=== PATIENT | male | born 1980 | race Asian ===

== ENCOUNTER 2018-08-01 06:31 | Emergency (ER) | payer OTHER ==
[~2018-08-01] VITALS: Ht 170.2 cm; Wt 75.0 kg
[~2018-08-01 06:31] MED LIST: ACET500C5 PO; FAMO20TA18 PO; HYDR-4011 PO; LEVO500T48 PO; ONDA4TAB8 PO
[2018-08-01 06:35] VITALS: Ht 170.2 cm; Wt 75.0 kg
[2018-08-01] MEDS ORDERED: ONDANSETRON 4 MG INJ IV STA (07:20)
[2018-08-01] MEDS ORDERED: KETOROLAC 30 MG INJ IV STA (07:20)
[2018-08-01] MEDS ORDERED: SOD CHLORIDE 0.9% 1,000 ML IV STA (07:20)
[2018-08-01] MEDS ORDERED: morphine 4 MG/ML VIAL IV STA (07:20)
[2018-08-01] MEDS ORDERED: FAMOTIDINE 20 MG INJ IV STA (07:20)
[2018-08-01] MEDS ORDERED: morphine 2 MG INJ IV STA (10:16)
[2018-08-01] MEDS ORDERED: IOHEXOL 300MG/ML 150 ML BTL ONE (10:29)
[2018-08-01] MEDS ORDERED: SOD CHLORIDE 0.9% 100 ML ONE (10:29)
[2018-08-01] MEDS ORDERED: SUCR1TAB56 PO (10:56)
[2018-08-01] MEDS ORDERED: HYDR-4011 PO (10:56)
[2018-08-01 11:13] VITALS: BP 109/69; PULSE 68; RESP 18
--- NOTE | 2018-08-01 12:20 | ERD ---
ER Documentation Chief Complaint Chief Complaint pt is bib self with c/o abd pain starting on Saturday getting worse HPI 37-year-old male presents with epigastric pain times 5 days. Is progressively gotten worse and it is a 9 out of 10 pain this morning he woke up. He has had nausea but no vomiting. Denies chest pain or shortness of breath. Denies fevers. Has not taken medications for symptoms. Denies medical problems. Allergy to sulfa and ampicillin. Surgical history is appendectomy 2 years ago. Social history denies ROS All systems reviewed and are negative except as per history of present illness. Medications Home Meds Active Scripts Sucralfate* (Carafate*) 1 Gm Tab, 1 GM PO QID, #15 TAB Prov:ANTONIA MELGAR PA-C 08/01/18 Hydrocodone/Acetaminophen ([place] 5-325 Tablet) 1 Each Tablet, 1 TAB PO Q6H PRN for PAIN, #7 TAB Prov:ANTONIA MELGAR PA-C 08/01/18 Levofloxacin* (Levaquin*) 500 Mg Tablet, 500 MG PO DAILY, #5 TAB Prov:XOCHITL SILVER MD 04/16/16 Hydrocodone/Acetaminophen ([place] 5-325 Tablet) 1 Each Tablet, 1 EACH PO Q6H, #1 TAB Prov:XOCHITL SILVER MD 04/16/16 Ondansetron Hcl* (Zofran*) 4 Mg Tablet, 4 MG PO Q6H for NAUSEA AND/OR VOMITING, #30 TAB Prov:SRIDHAR CLARK PA-C 04/15/16 Acetaminophen* (Tylophen*) 500 Mg Capsule, 1 CAP PO Q6H PRN for PAIN AND OR ELEVATED TEMP, #20 CAP Prov:SRIDHAR CLARK PA-C 04/15/16 Famotidine* (Famotidine*) 20 Mg Tablet, 20 MG PO BID, #30 TAB Prov:SRIDHAR CLARK PA-C 04/15/16 Allergies Allergies: Coded Allergies: ampicillin (Verified Allergy, Intermediate, Rash, 04/15/16) sulfamethoxazole (Verified Allergy, Intermediate, Rash, 04/15/16) PMhx/Soc History of Surgery: No Anesthesia Reaction: No Hx Neurological Disorder: No Hx Respiratory Disorders: No Hx Cardiac Disorders: No Hx Psychiatric Problems: No Hx Miscellaneous Medical Probl: No Hx Alcohol Use: No Hx Substance Use: No Hx Tobacco Use: No FmHx Family History: No diabetes, No coronary disease, No other Physical Exam Vitals Vital Signs Date Temp Pulse Resp B/P (MAP) Pulse Ox O2 O2 Flow FiO2 Time Delivery Rate 08/01/18 97.6 68 18 109/69 99 Room Air 11:13 (82) 08/01/18 97.8 74 16 122/64 98 06:35 (83) Physical Exam GENERAL: The patient is well-appearing, well-nourished, in no acute distress HEENT: Atraumatic. Conjunctivae are pink. Pupils equal, round, and reactive to light. There is no scleral icterus. Tympanic membranes clear bilaterally. Oropharynx clear. NECK: C-spine is soft and supple. There is no meningismus. There is no cervical lymphadenopathy. CHEST: Clear to auscultation bilaterally. There are no rales, wheezes or rhonchi. HEART: Regular rate and rhythm. No murmurs, clicks, rubs or gallops. ABDOMEN: Normal active bowel sounds. No distention. No organomegaly. Tender to palpation over the epigastric region with no rebound tenderness. Result Diagram: 08/01/18 0739 08/01/18 0739 Results 24 hrs Laboratory Tests Test 08/01/18 07:39 08/01/18 09:55 White Blood Count 6.6 10^3/ul Red Blood Count 5.53 10^6/ul Hemoglobin 16.9 g/dl Hematocrit 50.2 % Mean Corpuscular Volume 90.8 fl Mean Corpuscular Hemoglobin 30.6 pg Mean Corpuscular Hemoglobin Concent 33.7 g/dl Red Cell Distribution Width 11.9 % Platelet Count 267 10^3/UL Mean Platelet Volume 9.5 fl Immature Granulocytes % 0.300 % Neutrophils % 56.4 % Lymphocytes % 30.5 % Monocytes % 9.3 % Eosinophils % 3.3 % Basophils % 0.2 % Nucleated Red Blood Cells % 0.0 /100WBC Immature Granulocytes # 0.020 10^3/ul Neutrophils # 3.7 10^3/ul Lymphocytes # 2.0 10^3/ul Monocytes # 0.6 10^3/ul Eosinophils # 0.2 10^3/ul Basophils # 0.0 10^3/ul Nucleated Red Blood Cells # 0.0 10^3/ul Sodium Level 143 mmol/L Potassium Level 4.4 mmol/L Chloride Level 100 mmol/L Carbon Dioxide Level 29 mmol/L Anion Gap 14 Blood Urea Nitrogen 19 mg/dl Creatinine 1.02 mg/dl Est Glomerular Filtrat Rate mL/min > 60 mL/min Glucose Level 96 mg/dl Calcium Level 10.5 mg/dl Total Bilirubin 0.8 mg/dl Direct Bilirubin 0.00 mg/dl Indirect Bilirubin 0.8 mg/dl Aspartate Amino Transf (AST/SGOT) 48 IU/L Alanine Aminotransferase (ALT/SGPT) 70 IU/L Alkaline Phosphatase 55 IU/L Total Protein 8.2 g/dl Albumin 5.2 g/dl Globulin 3.00 g/dl Albumin/Globulin Ratio 1.73 Lipase 84 U/L Urine Color YELLOW Urine Clarity CLEAR Urine pH 8.0 Urine Specific [place] 1.011 Urine Ketones 1+ mg/dL Urine Nitrite NEGATIVE mg/dL Urine Bilirubin NEGATIVE mg/dL Urine Urobilinogen NEGATIVE mg/dL Urine Leukocyte Esterase NEGATIVE Aline/ul Urine Hemoglobin NEGATIVE mg/dL Urine Glucose NEGATIVE mg/dL Urine Total Protein NEGATIVE mg/dl Current Medications Medications Dose Sig/Evelyn Start Time Status Last (Trade) Ordered Route PRN Stop Time Admin Dose Reason Admin Sodium 1,000 ml @ Q1H STAT 08/01/18 DC 08/01/18 Chloride 1,000 mls/hr IV 07:20 07:43 08/01/18 08:19 Morphine 4 mg ONCE STAT 08/01/18 DC 08/01/18 Sulfate IV 07:20 07:43 (morphine) 08/01/18 07:21 Ondansetron 4 mg ONCE STAT 08/01/18 DC 08/01/18 HCl (Zofran IV 07:20 07:43 Inj) 08/01/18 07:21 Famotidine 20 mg ONCE STAT 08/01/18 DC 08/01/18 (Pepcid Iv) IV 07:20 07:43 08/01/18 07:21 Ketorolac 30 mg ONCE STAT 08/01/18 DC 08/01/18 Tromethamine IV 07:20 07:43 (Toradol) 08/01/18 07:21 Morphine 2 mg ONCE STAT 08/01/18 DC 08/01/18 Sulfate IV 10:16 10:20 (morphine) 08/01/18 10:17 IV Flush 10 ml STK-MED 08/01/18 DC 08/01/18 (NS 10 ml) ONCE .ROUTE 10:29 10:37 08/01/18 10:30 Sodium 100 ml @ ud STK-MED 08/01/18 DC 08/01/18 Chloride ONCE .ROUTE 10:29 10:38 08/01/18 10:30 Iohexol 150 ml STK-MED 08/01/18 DC 08/01/18 (Omnipaque ONCE .ROUTE 10: 10:37 300mg/ ml) 08/01/18 10:30 Procedures/MDM DIAGNOSTIC IMAGING REPORT Patient: DENSIE EUCEDA DOB: 1980 Age: 37 Sex: M MR #: [id number] DOS: 08/01/18919 Ordering MD: WILLIE MELGAR PA-C Location: [facility] Room/Bed: PROCEDURE: CT Abdomen and Pelvis with IV contrast. CLINICAL INDICATION: Abdominal pain TECHNIQUE: CT of the abdomen and pelvis with 90 cc Omnipaque-300 IV contrast. Coronal and sagittal reformatted images. DICOM images are available. One or more of the following dose reduction techniques were used: automated exposure control, adjustment of the mA and/or kV according to patient size, use of iterative reconstruction technique. CTDI 8.9 mGy, DLP 462 mGy-cm. COMPARISON: Ultrasound, 08/01/2018; CT, 04/16/2016 FINDINGS: Lower thorax: Normal. Liver: Normal. Biliary: Normal gallbladder. No biliary dilatation. Pancreas: Normal. Spleen: Normal. Adrenal glands: Normal. Genitourinary: Small benign right renal cyst. No urolithiasis or obstructive uropathy. Unremarkable urinary bladder. Vascular: No abdominal aortic aneurysm or dissection. Lymph nodes: No lymphadenopathy. Gastrointestinal: No bowel obstruction. Status post appendectomy. No diverticulosis, diverticulitis or colitis. Peritoneum: No free air, free fluid or abscess. Reproductive organs: Normal. Musculoskeletal: Unremarkable. IMPRESSION: 1. Status post appendectomy. 2. No evidence of bowel obstruction, mass, lymphadenopathy, or acute inflammatory process. DIAGNOSTIC IMAGING REPORT Patient: DENISE EUCEDA DOB: 1980 Age: 37 Sex: M MR #: [id number] [facility] #: [id number] DOS: 08/01/18 0000 Ordering MD: WILLIE MELGAR PA-C Location: [facility] Room/Bed: PROCEDURE: US Abdomen. CLINICAL INDICATION: abdominal pain TECHNIQUE: Multiple real-time images were acquired of the patient's right upper quadrant abdomen and retroperitoneum utilizing a high resolution transduce r. COMPARISON: 04/16/2016 FINDINGS: The liver demonstrates normal echogenicity. The liver is normal in size and no focal solid lesions are seen. The liver measures 13 cm in length. The portal vein is patent with normal direction of flow. No intrahepatic biliary dilatation is seen. No gallstones are identified within the gallbladder. There is no pericholecystic fluid or gallbladder wall thickening. The common bile duct measures 2 mm in maximal dimension. The visualized portions of the pancreas are unremarkable. The tail of the pancreas is not seen. No free fluid is identified. The right kidney is normal in size, and demonstrate normal echogenicity and cortical thickness. The right kidney measures 9.5 cm in long dimension. There is no evidence of hydronephrosis. There is a small 4 mm echogenic lesion in the upper pole of the right kidney, suspicious for a small angiomyolipoma. 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 No evidence of hydronephrosis. No evidence of gallstones. ER Course: 1L NS given in ED. Toradol, zofran and morphine given in ED MDM: 37-year-old male presents with epigastric pain. Patient worked in normal imaging. I have low suspicion for acute abdominal emergency. I have low suspicion for cardiac or pulmonary emergency. Patient is discharged with supportive medications and recommended to follow-up with GI as he likely needs an endoscopy. Patient is told symptoms change or worsen to return immediately to the ER. All questions answered at discharge Departure Diagnosis: Primary Impression: Epigastric abdominal pain Condition: Stable Patient Instructions: Epigastric Pain (Uncertain Cause) Referrals: COMMUNITY CLINICS YOU HAVE RECEIVED A MEDICAL SCREENING EXAM AND THE RESULTS INDICATE THAT YOU DO NOT HAVE A CONDITION THAT REQUIRES URGENT TREATMENT IN THE EMERGENCY DEPARTMENT. FURTHER EVALUATION AND TREATMENT OF YOUR CONDITION CAN WAIT UNTIL YOU ARE SEEN IN YOUR DOCTORS OFFICE WITHIN THE NEXT 1-2 DAYS. IT IS YOUR RESPONSIBILITY TO MAKE AN APPOINTMENT FOR FOLOW-UP CARE. IF YOU HAVE A PRIMARY DOCTOR --you should call your primary doctor and schedule an appointment IF YOU DO NOT HAVE A PRIMARY DOCTOR YOU CAN CALL OUR PHYSICIAN REFERRAL HOTLINE AT IF YOU CAN NOT AFFORD TO SEE A PHYSICIAN YOU CAN CHOSE FROM THE FOLLOWING COMMU FORMERLY [facility] [address] [facility] [address] [facility] [facility] [address] [facility] [address] [facility] [address] [facility] [facility]. [address] Additional Instructions: FOLLOW UP WITH YOUR PRIMARY CARE PHYSICIAN TOMORROW.Return to this facility if you are not improving as expected. ANTONIA MELGAR PA-C Aug 01, 2018 12:20
== END 2018-08-01 11:14 | disposition home or self-care (01) ==
LOC: FTE 06:31
DX: R10.13 Epigastric pain (principal)
CPT/HCPCS: 36415; 74177; 76705; 80053; 81003; 83690; 85025; 96361; 96374; 96375; 96376; 99285; J1885; J2270; J2405; J7030; Q9967